=== PATIENT | male | born 1970 | race Two or more races ===

== ENCOUNTER 2024-08-30 07:49 | Emergency (ER) | payer OTHER ==
[~2024-08-30] VITALS: Ht 172.7 cm; Wt 77.1 kg
[~2024-08-30 07:49] MED LIST: ACETAMINOPHEN650 M2 PO; CHILDREN'S ASPI81 MG PO; KETO10TA2 PO; NORFLEX100MG PO
[2024-08-30] MEDS ORDERED: DEXAMETHASONE SODIUM PHOSPHATE 4 MG/ML VIAL IM STA (08:42)
== END 2024-08-30 09:23 | disposition home or self-care (01) ==
LOC: ER 07:50
DX: R53.1 Weakness (principal); M51.369 Other intervertebral disc degeneration, lumbar region without mention of lumbar back pain or lower extremity pain